=== PATIENT | male | born 1980 | race American Indian/Alaskan Native ===

== ENCOUNTER 2021-10-27 18:15 | Emergency (ER) | payer SELFPAY ==
[2021-10-27 18:23] VITALS: BP 136/81
== END 2021-10-28 02:15 | disposition left against medical advice (07) ==
LOC: ED 18:15
DX: Z00.00 Encounter for general adult medical examination without abnormal findings (principal); Z53.21 Procedure and treatment not carried out due to patient leaving prior to being seen by health care provider